=== PATIENT | female | born 1995 | race Two or more races ===

== ENCOUNTER 2019-03-31 09:37 | Emergency (ER) | payer SELFPAY ==
[~2019-03-31] VITALS: Ht 172.7 cm; Wt 90.7 kg
[2019-03-31] MEDS ORDERED: NKM (09:38)
--- NOTE | 2019-03-31 09:41 | NUR ---
ED Nurse Note: PT BROUGHT IN TO ER TODAY FROM HOME BY R26 DUE TO OD ON FENTANYL. PER EMS, PT WAS FOUND UNCONSCIOUS AT HOME. EMS ADMINISTERED NARCAN 2MG IV. EMS STATES PT HAD ONE EPISODE OF VOMITING FOLLOWING ADMINISTRATION OF NARCAN. UPON ARRIVAL, PT WAS AWAKE, AOX4 AND ANSWERING ALL QUESTIONS APPROPRIATELY. GAIT STEADY. PT DENIES SI/HI AND STATES FENTANYL WAS TAKEN RECREATIONALLY. PT STATES SHE "SNORTED A BUMP OF FENTANYL." VITAL SIGNS STABLE.
[2019-03-31 09:43] VITALS: BP 111/90
--- NOTE | 2019-03-31 09:46 | NUR ---
\ED Nurse Note: [employer] AT BEDSIDE.
[2019-03-31 10:14] LABS: BASOPHILS % (AUTO) 0.8 % (0.0-2.0); EOSINOPHILS % (AUTO) 1.2 % (0.0-3.0); HEMATOCRIT 41.5 % (37.0-47.0); HEMOGLOBIN 13.8 G/DL (12.0-16.0); LYMPHOCYTES % (AUTO) 20.4 % (20.0-45.0); MEAN CORPUSCULAR VOLUME 90 FL (80-99); MONOCYTES % (AUTO) 7.4 % (1.0-10.0); NEUTROPHILS % (AUTO) 70.3 % (45.0-75.0); PLATELET COUNT 290 K/UL (150-450); RED BLOOD COUNT 4.63 M/UL (4.20-5.40); RED CELL DISTRIBUTION WIDTH 11.7 % (11.6-14.8); WHITE BLOOD COUNT 9.3 K/UL (4.8-10.8)
[2019-03-31 10:21] LABS: ANION GAP 7 mmol/L (5-15); BLOOD UREA NITROGEN 13 mg/dL (7-18); CALCIUM 9.2 MG/DL (8.5-10.1); CARBON DIOXIDE 29 MMOL/L (21-32); CHLORIDE 101 MMOL/L (98-107); CREATININE 0.5 MG/DL (0.55-1.30); POTASSIUM 3.6 MMOL/L (3.5-5.1); SODIUM 137 MMOL/L (136-145)
[2019-03-31 10:25] LABS: ALANINE AMINOTRANSFERASE 49 U/L (12-78); ALBUMIN/GLOBULIN RATIO 1.2 (1.0-2.7); ALKALINE PHOSPHATASE 66 U/L (46-116); ASPARTATE AMINO TRANSFERASE 26 U/L (15-37); BILIRUBIN,TOTAL 0.4 MG/DL (0.2-1.0)
--- NOTE | 2019-03-31 10:59 | Emergency Room Report ---
History of Present Illness General Chief Complaint: Overdose Source: Patient Present Illness HPI Patient presents by paramedics for reports of unintentional fentanyl overdose patient was found by her boyfriend at her house Patient reports that she has done this drug several times in the past however she reports that she took a stronger dose she reports inhaling the fentanyl Denies any chest pain or shortness of breath denies any headache denies any neck pain or photophobia denies any vomiting or diarrhea denies any homicidal suicidal intent Allergies: Coded Allergies: No Known Allergies (Unverified , 03/31/19) Patient History Past Medical History: see triage record Last Menstrual Period: first week of February Reviewed Nursing Documentation: PMH: Agreed; PSxH: Agreed Nursing Documentation-PMH Past Medical History: No Stated History Review of Systems All Other Systems: negative except mentioned in HPI Physical Exam Vital Signs Date Time Temp Pulse Resp B/P (MAP) Pulse Ox O2 Delivery O2 Flow Rate FiO2 03/31/19 09:32 98.4 100 17 121/64 (83) 98 Room Air Sp02 EP Interpretation: reviewed, normal General Appearance: well appearing, no apparent distress Head: normocephalic, atraumatic Eyes: bilateral eye PERRL, bilateral eye EOMI ENT: hearing grossly normal, normal pharynx, TMs + canals normal, uvula midline Neck: full range of motion, supple, no meningismus, no bony tend Respiratory: lungs clear, normal breath sounds, no rhonchi, no respiratory distress, no retraction, no accessory muscle use Cardiovascular #1: normal peripheral pulses, regular rate, rhythm, no edema, no gallop, no JVD, no murmur Gastrointestinal: normal bowel sounds, non tender, soft, no mass, no organomegaly, non-distended, no guarding, no hernia, no pulsatile mass, no rebound Genitourinary: no CVA tenderness Musculoskeletal: normal inspection Neurologic: oriented x3, responsive, furniture mechanic III-XII nml as tested, motor strength/ tone normal, sensory intact Psychiatric: mood/affect normal Skin: palpation normal Lymphatic: normal inspection, no adenopathy Medical Decision Making Diagnostic Impression: Primary Impression: Drug overdose ER Course Patient was reportedly given Narcan in the field has remained awake and alert throughout her stay Patient does not show any findings consistent with neurological deficits at this time remains awake and alert on cardiac monitoring Patient was provided oral hydration contact is being made with family Patient continues to deny any homicidal or suicidal thoughts and reports accidental ingestion Family has arrived to concur with the patient's description they also report that this is happened before they are further educated with the concerns and possible risk factors of this patient was also written for prescription of Narcan Labs Test 03/31/19 09:52 White Blood Count 9.3 K/UL (4.8-10.8) Red Blood Count 4.63 M/UL (4.20-5.40) Hemoglobin 13.8 G/DL (12.0-16.0) Hematocrit 41.5 % (37.0-47.0) Mean Corpuscular Volume 90 FL (80-99) Mean Corpuscular Hemoglobin 29.8 PG (27.0-31.0) Mean Corpuscular Hemoglobin Concent 33.2 G/DL (32.0-36.0) Red Cell Distribution Width 11.7 % (11.6-14.8) Platelet Count 290 K/UL (150-450) Mean Platelet Volume 6.6 FL (6.5-10.1) Neutrophils (%) (Auto) 70.3 % (45.0-75.0) Lymphocytes (%) (Auto) 20.4 % (20.0-45.0) Monocytes (%) (Auto) 7.4 % (1.0-10.0) Eosinophils (%) (Auto) 1.2 % (0.0-3.0) Basophils (%) (Auto) 0.8 % (0.0-2.0) Urine HCG, Qualitative Negative (NEGATIVE) Sodium Level 137 MMOL/L (136-145) Potassium Level 3.6 MMOL/L (3.5-5.1) Chloride Level 101 MMOL/L (98-107) Carbon Dioxide Level 29 MMOL/L (21-32) Anion Gap 7 mmol/L (5-15) Blood Urea Nitrogen 13 mg/dL (7-18) Creatinine 0.5 MG/DL (0.55-1.30) Estimat Glomerular Filtration Rate > 60 mL/min (>60) Glucose Level 114 MG/DL (74-106) Calcium Level 9.2 MG/DL (8.5-10.1) Total Bilirubin 0.4 MG/DL (0.2-1.0) Aspartate Amino Transf (AST/SGOT) 26 U/L (15-37) Alanine Aminotransferase (ALT/SGPT) 49 U/L (12-78) Alkaline Phosphatase 66 U/L (46-116) Total Protein 7.3 G/DL (6.4-8.2) Albumin 4.0 G/DL (3.4-5.0) Globulin 3.3 g/dL Albumin/Globulin Ratio 1.2 (1.0-2.7) Rhythm Strip Diag. Results EP Interpretation: yes Rate: 60 Rhythm: NSR, no PVC's, no ectopy Last Vital Signs Date Time Temp Pulse Resp B/P (MAP) Pulse Ox O2 Delivery O2 Flow Rate FiO2 03/31/19 09:43 98.2 100 10 111/90 97 Room Air Status: improved Disposition: HOME, SELF-CARE Condition: Improved Scripts Naloxone HCl (Narcan) 4 Mg [place] 4 MG NS PRN, #2 SPRAY Prov: Carlos Manuel Hernandez DO 03/31/19 Referrals: NOT CHOSEN IPA/MD,REFERRING (PCP) Additional Instructions: Patient is provided with the discharge instructions notified to follow up with primary doctor in the next 2-3 days otherwise return to the er with any worsening symptoms. Please note that this report is being documented using [employer] technology. This can lead to erroneous entry secondary to incorrect interpretation by the dictating instrument. Carlos Manuel Hernandez DO Mar 31, 2019 10:58
[2019-03-31 11:47] VITALS: BP 122/88
--- NOTE | 2019-03-31 11:47 | NUR ---
ED Nurse Note: PT LAYING PEACEFULLY IN BED IN NAD. AOX4. BOYFRIEND AT BEDSIDE. DISCHARGE PAPERWORK EXPLAINED TO PT. PT VERBALIZES UNDERSTANDING AND ALL QUESTIONS ANSWERED. DISCHARGE PAPERWORK GIVEN TO PT, IV AND ID WRISTBAND REMOVED. PT WALKED OUT OF ER WITH STEADY GAIT AND ALL BELONGINGS ACCOMPANIED BY BOYFRIEND.
--- NOTE | 2019-03-31 11:47 | NUR ---
ED Nurse Note: PROVIDED RESOURCES AROUND THE AREA.
[2019-03-31] MEDS ORDERED: NARCAN4 MG NS (11:49)
== END 2019-03-31 11:47 | disposition home or self-care (01) ==
LOC: EDBD 09:37 → EMR 09:54
DX: T40.4X1A Poisoning by other synthetic narcotics, accidental (unintentional), initial encounter (principal); X58.XXXA Exposure to other specified factors, initial encounter; Y92.9 Unspecified place or not applicable
CPT/HCPCS: 36415; 80053; 81025; 85025; 99284